=== PATIENT | female | born 1960 | race Caucasian/White ===

== ENCOUNTER 2021-04-24 02:57 | Observation (INO) | payer MEDICARE ==
[2021-04-24 03:55] LABS: #Basophils 0.1 thou/uL (0.0-0.2); #Eosinphils 0.2 thou/uL (0.0-0.7); #Lymphocytes 2.8 thou/uL (1.20-3.40); #Neutrophils 5.6 thou/uL (1.40-6.50); %Basophils 0.9 % (0.0-1.0); %Eosinophils 2.4 % (0.0-10.0); %Lymphocytes 29.1 % (21.0-51.0); %Monocytes 9.8 % (0.0-10.0); %Neutrophils 57.8 % (42.0-75.0); Hemoglobin 12.8 g/dL (12.0-16.0); Mean Corpuscular Hemoglobin 31.7 pg (27.0-31.0); Mean Corpuscular Volume 96.1 fL (78.0-98.0); Mean Platelet Volume 7.9 fL (7.4-10.4); Platelet Count 333 thou/uL (130-400); RBC Distribution Width 14.9 % (11.5-14.5); Red Blood Cell (RBC) Count 4.03 mill/uL (4.20-5.40); White Blood Cell (WBC) Count 9.8 thou/uL (4.8-10.8)
[2021-04-24] MEDS ORDERED: Naloxone HCl 2 mg/2 ml Syringe ONE (03:59)
[2021-04-24 04:07] LABS: ALT (SGPT) 11 U/L (8-55); AST (SGOT) 23 U/L (5-34); Albumin 4.3 g/dL (3.5-5.0); Alcohol Less than 10 mg/dL (Less than 10); Alkaline Phosphatase 95 U/L (40-110); Anion Gap 17 mmol/L (10-20); BUN (Urea Nitrogen) 21 mg/dL (9.8-20.1); Bilirubin, Total 0.4 mg/dL (0.2-1.2); Calc. Creatinine Clearance 0 mL/min (70-130); Calcium 9.8 mg/dL (7.8-10.44); Carbon Dioxide 27 mmol/L (22-29); Chloride 97 mmol/L (98-107); Globulin 3.5 g/dL (2.4-3.5); Glucose 96 mg/dL (70-105); Potassium 4.4 mmol/L (3.5-5.1); Protein, Total 7.8 g/dL (6.0-8.3); Sodium 137 mmol/L (136-145)
[2021-04-24 06:58] LABS: Bilirubin Negative (Negative); Blood, Urine Negative (Negative); Clarity Clear (Clear); Glucose, Urine (Dipstick) Normal (Negative); Ketone, Urine Negative (Negative); Leukocyte Negative Leu/uL (Negative); Nitrite Negative (Negative); Protein, Urine (Dipstick) Negative (Neg-Trace); Specific Gravity, Urine 1.016 (1.002-1.036); Urobilinogen Normal mg/dL (Less than 2)
[2021-04-24 07:07] LABS: Amphetamine Not Detected (NotDetected); Barbiturates Screen Not Detected (NotDetected); Benzodiazepine Screen Not Detected (NotDetected); Cocaine Metabolite Screen Not Detected (NotDetected); Methadone Not Detected (NotDetected); Methamphetamine Not Detected (NotDetected); Opiate Screen Not Detected (NotDetected); Oxycodone Screen Not Detected (NotDetected); Phencyclidine (PCP) Not Detected (NotDetected); THC/Cannabinoid Screen Not Detected (NotDetected); Tricyclic Screen Not Detected (NotDetected)
[2021-04-24] MEDS: Enoxaparin Sodium 40 MG/0.4 ML SYRINGE SC SCH (08:44)
[2021-04-24] MEDS ORDERED: Enoxaparin Sodium 40 MG/0.4 ML SYRINGE ONE (08:44)
[2021-04-24 12:33] LABS: SARS-CoV-2 PCR by NAA Not Detected (NotDetected)
[2021-04-24] MEDS ORDERED: Acetaminophen 325 MG TAB ONE (16:50)
[2021-04-24] MEDS: Acetaminophen 325 MG TAB PO PRN ×2 (16:55→21:39)
[2021-04-24] MEDS ORDERED: Pregabalin 75 MG CAP PO SCH (21:00)
[2021-04-24] MEDS ORDERED: clonazePAM 0.5 MG TAB PO SCH (21:00)
[2021-04-24] MEDS ORDERED: Baclofen 10 MG TAB PO SCH (21:00)
[2021-04-25] MEDS ORDERED: Polyvinyl Alcohol 1.4%/Povidone 0.6% Opth Drops EA EYE PRN (05:16)
[2021-04-25] MEDS ORDERED: Acetaminophen 325 MG TAB PO PRN (05:17)
[2021-04-25] MEDS: Enoxaparin Sodium 40 MG/0.4 ML SYRINGE SC SCH (08:38)
[2021-04-25] MEDS ORDERED: DULoxetine 30 MG CAP PO SCH (09:00)
[2021-04-25] MEDS ORDERED: Buprenorphine HCl 2 MG SL TAB SL SCH (09:00)
[2021-04-25 11:40] VITALS: BP 114/69; TEMP 98.1
[2021-04-26] MEDS ORDERED: Furosemide 20 MG TAB PO SCH (09:00)
[2021-04-26] MEDS ORDERED: Spironolactone 25 MG TAB PO SCH (09:00)
== END 2021-04-25 15:30 | disposition home or self-care (01) ==
LOC: ERS 02:57 → EDBD 02:57 → ERHOLD 06:08 → NEURO 20:07
PROVIDERS: ADMIT Student in an Organized Health Care Education/Training Program; ATTEND Student in an Organized Health Care Education/Training Program
DX: R41.82 Altered mental status, unspecified (principal); G89.29 Other chronic pain; M54.9 Dorsalgia, unspecified; G62.9 Polyneuropathy, unspecified; G25.81 Restless legs syndrome; F17.290 Nicotine dependence, other tobacco product, uncomplicated; I10 Essential (primary) hypertension; R63.5 Abnormal weight gain; Z68.28 Body mass index [BMI] 28.0-28.9, adult; Z79.899 Other long term (current) drug therapy; Z91.040 Latex allergy status; Z98.1 Arthrodesis status; Z20.822 Contact with and (suspected) exposure to COVID-19
CPT/HCPCS: 70450; 80306; 80307; 81003; 82140; 84484; U0003; U0005; 80053; 84443; 85025; 96372; 96374; G0378; J0571; J1650; J2310

== ENCOUNTER 2021-08-03 14:48 | Outpatient (CLI) | payer MEDICARE, OTHER | END 2021-08-03 14:49 | disposition home or self-care (01) | LOC: BICRAD 14:48 | PROVIDERS: ATTEND Psychiatry & Neurology Neurology | DX: M25.571 Pain in right ankle and joints of right foot (principal) ==

== ENCOUNTER 2021-11-13 00:07 | Emergency (ER) | payer MEDICARE ==
[2021-11-13] MEDS ORDERED: Haloperidol Lactate 5 MG/ML VIAL ONE (00:22)
[2021-11-13 01:18] LABS: #Basophils 0.1 thou/uL (0.0-0.2); #Eosinphils 0.3 thou/uL (0.0-0.7); #Lymphocytes 3.7 thou/uL (1.20-3.40); #Monocytes 0.8 thou/uL (0.11-0.59); #Neutrophils 3.7 thou/uL (1.40-6.50); %Basophils 1.1 % (0.0-1.0); %Eosinophils 3.5 % (0.0-10.0); %Monocytes 9.5 % (0.0-10.0); %Neutrophils 42.9 % (42.0-75.0); Hemoglobin 11.8 g/dL (12.0-16.0); Mean Corpuscular Hemoglobin 30.5 pg (27.0-31.0); Mean Corpuscular Volume 92.5 fL (78.0-98.0); Mean Platelet Volume 7.7 fL (7.4-10.4); Platelet Count 256 thou/uL (130-400); RBC Distribution Width 12.3 % (11.5-14.5); Red Blood Cell (RBC) Count 3.87 mill/uL (4.20-5.40); White Blood Cell (WBC) Count 8.6 thou/uL (4.8-10.8)
[2021-11-13 01:37] LABS: ALT (SGPT) 11 U/L (8-55); AST (SGOT) 13 U/L (5-34); Albumin 4.1 g/dL (3.4-4.8); Alkaline Phosphatase 66 U/L (40-110); Anion Gap 16 mmol/L (10-20); BUN (Urea Nitrogen) 20 mg/dL (9.8-20.1); Bilirubin, Total 0.6 mg/dL (0.2-1.2); CK (CPK) 200 U/L (29-168); Calc. Creatinine Clearance 0 mL/min (70-130); Calcium 9.6 mg/dL (7.8-10.44); Carbon Dioxide 21 mmol/L (23-31); Chloride 109 mmol/L (98-107); Estimated GFR 53; Globulin 2.8 g/dL (2.4-3.5); Glucose 95 mg/dL (80-115); Potassium 3.2 mmol/L (3.5-5.1); Protein, Total 6.9 g/dL (5.8-8.1); Sodium 143 mmol/L (136-145)
== END 2021-11-13 02:58 | disposition home or self-care (01) ==
LOC: ERS 00:07
DX: R56.9 Unspecified convulsions (principal); I10 Essential (primary) hypertension; F17.290 Nicotine dependence, other tobacco product, uncomplicated
CPT/HCPCS: 36415; 80053; 82550; 85025; 96372; 99284; J1630

== ENCOUNTER 2023-12-02 17:17 | Inpatient (IN) | payer MEDICARE, OTHER ==
[2023-12-02 17:38] LABS: #Basophils 0.05 10x3/uL (0.0-0.2); %Basophils 0.5 % (0.0-1.0); %Eosinophils 2.3 % (0.0-10.0); %Monocytes 7.6 % (0.0-10.0); %Neutrophils 68.3 % (42.0-75.0); Hematocrit 38.7 % (36.0-47.0); Hemoglobin 12.5 g/dL (12.0-16.0); Mean Corpuscular HGB CONC 32.3 g/dL (32.0-36.0); Mean Corpuscular Hemoglobin 29.8 pg (27.0-31.0); Mean Corpuscular Volume 92.4 fL (78.0-98.0); Platelet Count 300 10x3/uL (130-400); Red Blood Cell (RBC) Count 4.19 mill/uL (4.20-5.40)
[2023-12-02 17:56] LABS: PTT 28.6 sec (22.9-36.1)
[2023-12-02 17:59] LABS: Acetaminophen Less than 10 mcg/mL (Less than 10); Alcohol Less than 10.0 mg/dL (Less than 10); Salicylate Less than 8.0 mg/dL (Less than 8.0)
[2023-12-02 18:01] LABS: ALT (SGPT) 16 U/L (8-55); AST (SGOT) 20 U/L (5-34); Albumin 3.9 g/dL (3.4-4.8); Alkaline Phosphatase 91 U/L (40-110); Anion Gap 12 mmol/L (10-20); BUN (Urea Nitrogen) 14 mg/dL (9.8-20.1); Bilirubin, Total 0.7 mg/dL (0.2-1.2); CK (CPK) 108 U/L (29-168); Calc. Creatinine Clearance 0 mL/min (70-130); Calcium 9.5 mg/dL (7.8-10.44); Carbon Dioxide 26 mmol/L (23-31); Chloride 107 mmol/L (98-107); Estimated GFR 63; Globulin 3.5 g/dL (2.4-3.5); Glucose 80 mg/dL (80-115); Potassium 3.8 mmol/L (3.5-5.1); Protein, Total 7.4 g/dL (5.8-8.1); Sodium 141 mmol/L (136-145)
[2023-12-03 01:21] LABS: Magnesium 2.2 mg/dL (1.6-2.6); Phosphorus 3.5 mg/dL (2.3-4.7)
[2023-12-03 02:12] VITALS: BMI 28.9
[2023-12-03] MEDS: Multivitamins, Adult 10 ML, Folic Acid 1 MG, Thiamine HCl 100 MG, Admixture Fee 1 EACH ... IV SCH (02:50)
[2023-12-03] MEDS: Nicotine 14 MG PATCH TD SCH (02:51)
[2023-12-03] MEDS ORDERED: Glucagon 1 MG/ML KIT IM PRN (05:00)
[2023-12-03] MEDS ORDERED: Dextrose 5% in Water 1,000 ML IV PRN (05:00)
[2023-12-03] MEDS ORDERED: Dextrose 50% Abboject 50 ML SYRINGE SLOW IVP PRN (05:00)
[2023-12-03 05:46] LABS: #Basophils 0.05 10x3/uL (0.0-0.2); %Basophils 0.7 % (0.0-1.0); %Eosinophils 2.8 % (0.0-10.0); %Lymphocytes 26.6 % (21.0-51.0); %Monocytes 9.6 % (0.0-10.0); Hematocrit 37.5 % (36.0-47.0); Hemoglobin 11.8 g/dL (12.0-16.0); Mean Corpuscular HGB CONC 31.5 g/dL (32.0-36.0); Mean Corpuscular Hemoglobin 30.2 pg (27.0-31.0); Mean Corpuscular Volume 95.9 fL (78.0-98.0); Mean Platelet Volume 10.3 fL (7.4-10.4); Platelet Count 302 10x3/uL (130-400); Red Blood Cell (RBC) Count 3.91 mill/uL (4.20-5.40)
[2023-12-03 05:58] LABS: Anion Gap 15 mmol/L (10-20); BUN (Urea Nitrogen) 11 mg/dL (9.8-20.1); Calc. Creatinine Clearance 93 mL/min (70-130); Calcium 9.1 mg/dL (7.8-10.44); Carbon Dioxide 24 mmol/L (23-31); Chloride 108 mmol/L (98-107); Estimated GFR 87; Glucose 79 mg/dL (80-115); Potassium 3.9 mmol/L (3.5-5.1); Sodium 143 mmol/L (136-145)
[2023-12-03 07:53] LABS: Bilirubin Negative (Negative); Blood, Urine Negative (Negative); CAUTI Indications for Culture Alt mental st,lethar; Clarity Turbid (Clear); Glucose, Urine (Dipstick) Normal (Negative); Ketone, Urine 10 mg/dL (Negative); Leukocyte Negative Leu/uL (Negative); Nitrite Negative (Negative); Protein, Urine (Dipstick) Negative (Neg-Trace); RBC/HPF 0-3 HPF (0-3); Specific Gravity, Urine 1.011 (1.002-1.036); Squamous Epithelial 0-3 HPF (0-3); Urobilinogen Normal mg/dL (Less than 2); WBC/HPF None Seen HPF (0-3)
[2023-12-03 07:54] LABS: Bacteria/HPF 1+ HPF (None Seen)
[2023-12-03 07:55] LABS: Urine Culture Reflex No No
[2023-12-03 08:20] LABS: Amphetamine Not Detected (NotDetected); Barbiturates Screen Not Detected (NotDetected); Benzodiazepine Screen Not Detected (NotDetected); Cocaine Metabolite Screen Not Detected (NotDetected); Methadone Not Detected (NotDetected); Methamphetamine Not Detected (NotDetected); Opiate Screen Not Detected (NotDetected); Oxycodone Screen Detected (NotDetected); Phencyclidine (PCP) Not Detected (NotDetected); THC/Cannabinoid Screen Not Detected (NotDetected); Tricyclic Screen Detected (NotDetected)
[2023-12-03] MEDS: Furosemide 20 MG TAB PO SCH (08:31)
[2023-12-03] MEDS ORDERED: Acetaminophen 325 MG TAB PO PRN (10:04)
[2023-12-03] MEDS ORDERED: SUMAtriptan Succinate 50 MG TAB PO PRN (10:19)
[2023-12-03] MEDS: SUMAtriptan Succinate 25 MG TAB PO SCH (10:52)
[2023-12-03] MEDS: Fluticasone Propionate Nasal Spray 16 gm Bottle NASAL PRN (10:53)
[2023-12-03] MEDS: Ibuprofen 600 MG TAB PO PRN (11:00)
[2023-12-03] MEDS ORDERED: Ondansetron ODT 4 MG TAB PO PRN (11:46)
[2023-12-03] MEDS ORDERED: Lorazepam 2 MG/ML VIAL IM PRN (11:46)
[2023-12-03] MEDS ORDERED: Electrolyte Replacement Protocol 1 EACH FS SCH (12:00)
[2023-12-03] MEDS: Thiamine HCl 200 MG/2 ML VIAL SLOW IVP SCH (12:44)
[2023-12-03] MEDS: Lorazepam 1 MG TAB PO SCH (12:45)
[2023-12-03 13:58] LABS: Phosphorus 3.3 mg/dL (2.3-4.7)
[2023-12-03] MEDS: SUMAtriptan Succinate 50 MG TAB PO SCH (16:03)
[2023-12-03] MEDS ORDERED: Magnesium 2 GM/50 ML(in water) 2 GM in Premix 1 BAG IVPB SCH (21:30)
[2023-12-03] MEDS: Baclofen 10 MG TAB PO SCH (23:30)
[2023-12-03] MEDS: Amitriptyline HCl 25 MG TAB PO SCH (23:30)
[2023-12-03] MEDS: Latanoprost 0.005% Ophth Soln 2.5 ml Bottle EA EYE SCH (23:31)
[2023-12-03] MEDS: oxyCODONE 5 MG TAB PO SCH (23:31)
[2023-12-03] MEDS: Topiramate 100 MG TAB PO SCH (23:33)
[2023-12-03] MEDS: tiZANidine HCl 4 MG TAB PO SCH (23:33)
[2023-12-03] MEDS: rOPINIRole HCl 2 MG TAB PO SCH (23:33)
[2023-12-03] MEDS: Magnesium 2 GM/50 ML(in water) 2 GM in Premix 1 BAG IVPB SCH (23:34)
[2023-12-03] MEDS: Lorazepam 1 MG TAB PO PRN (23:46)
[2023-12-04 05:19] LABS: #Basophils 0.03 10x3/uL (0.0-0.2); %Basophils 0.4 % (0.0-1.0); %Eosinophils 4.1 % (0.0-10.0); %Lymphocytes 37.9 % (21.0-51.0); %Monocytes 12.2 % (0.0-10.0); %Neutrophils 45.3 % (42.0-75.0); Hematocrit 36.6 % (36.0-47.0); Hemoglobin 11.6 g/dL (12.0-16.0); Mean Corpuscular HGB CONC 31.7 g/dL (32.0-36.0); Mean Corpuscular Hemoglobin 29.6 pg (27.0-31.0); Mean Corpuscular Volume 93.4 fL (78.0-98.0); Platelet Count 281 10x3/uL (130-400); Red Blood Cell (RBC) Count 3.92 mill/uL (4.20-5.40)
[2023-12-04 05:46] LABS: Anion Gap 12 mmol/L (10-20); BUN (Urea Nitrogen) 13 mg/dL (9.8-20.1); Calc. Creatinine Clearance 87 mL/min (70-130); Calcium 9.4 mg/dL (7.8-10.44); Carbon Dioxide 28 mmol/L (23-31); Chloride 106 mmol/L (98-107); Estimated GFR 80; Glucose 90 mg/dL (80-115); Magnesium 2.3 mg/dL (1.6-2.6); Potassium 4.1 mmol/L (3.5-5.1); Sodium 142 mmol/L (136-145)
[2023-12-04] MEDS: Multivit, Therapeutic 1 TAB PO SCH (08:37)
[2023-12-04] MEDS: oxyCODONE 5 MG TAB PO SCH (08:38)
[2023-12-04] MEDS: Folic Acid 1 MG TAB PO SCH (08:43)
[2023-12-04] MEDS: Spironolactone 25 MG TAB PO SCH (08:43)
[2023-12-04] MEDS ORDERED: Lorazepam 1 MG TAB PO PRN (11:46)
[2023-12-04 12:59] VITALS: BP 121/70; TEMP 97.7
[2023-12-05] MEDS ORDERED: Lorazepam 1 MG TAB PO PRN (11:46)
[2023-12-05] MEDS ORDERED: Lorazepam 0.5 MG TAB PO SCH (12:00)
[2023-12-06] MEDS ORDERED: Lorazepam 0.5 MG TAB PO PRN (11:46)
[2023-12-06] MEDS ORDERED: Thiamine 100 MG TAB PO SCH (12:00)
== END 2023-12-04 16:31 | disposition home or self-care (01) | DRG 93 ==
LOC: ERS 17:17 → 2SE 22:30 → OBSVTOIN 12-03 16:45
PROVIDERS: ADMIT Student in an Organized Health Care Education/Training Program; ATTEND Student in an Organized Health Care Education/Training Program
PROC: 4A00X4Z Measurement of Central Nervous Electrical Activity, External Approach (ICD-10-PCS; principal; 2023-12-03)
DX: G92.8 Other toxic encephalopathy (principal); G62.9 Polyneuropathy, unspecified; Z91.040 Latex allergy status; Z79.899 Other long term (current) drug therapy; Z98.890 Other specified postprocedural states; T42.8X5A Adverse effect of antiparkinsonism drugs and other central muscle-tone depressants, initial encounter; G89.29 Other chronic pain; M54.9 Dorsalgia, unspecified
CPT/HCPCS: 36415; 36416; 70450; 70486; 71045; 72125; 80048; 80053; 80306; 80307; 81001; 82140; 82550; 82607; 83735; 84100; 84146; 85025; 85610; 85730; 93005; 95700; 95711; 95819; G0378; J3411